=== PATIENT | male | born 1985 | race Two or more races ===

== ENCOUNTER 2018-07-26 12:18 | Emergency (ER) | payer OTHER ==
[~2018-07-26] VITALS: Ht 177.8 cm; Wt 99.8 kg
[2018-07-26 12:32] VITALS: BP 186/99
[2018-07-26 12:50] LABS: Urine Bacteria FEW /hpf (None Seen); Urine Blood Negative /uL (Negative); Urine Mucus FEW (None Seen); Urine Specific Gravity 1.029 (1.001-1.035); Urine WBC 23 /hpf (0 - 3)
== END 2018-07-26 12:59 | disposition left against medical advice (07) ==
LOC: ER 12:18
DX: R19.7 Diarrhea, unspecified (principal); Z53.21 Procedure and treatment not carried out due to patient leaving prior to being seen by health care provider
CPT/HCPCS: 81001